=== PATIENT | male | born 1980 | race Caucasian/White ===

== ENCOUNTER 2018-09-18 16:50 | Emergency (ER) | payer SELFPAY ==
[~2018-09-18] VITALS: Ht 172.7 cm; Wt 87.5 kg
[2018-09-18 17:02] VITALS: BP 123/75; Ht 172.7 cm; Wt 87.5 kg
== END 2018-09-18 18:23 | disposition left against medical advice (07) ==
LOC: ED 16:50
DX: Z53.21 Procedure and treatment not carried out due to patient leaving prior to being seen by health care provider (principal)